=== PATIENT | female | born 2000 | race Two or more races ===

== ENCOUNTER → 2021-10-17 | Outpatient (CLI) | payer OTHER ==
[~2021-10-17] MED LIST: MUPIROCIN 2% OINT 22 GM TUBE ONE
== END ==
LOC: WCC 10:51
PROVIDERS: ATTEND Family Medicine Adult Medicine
DX: S31.502A Unspecified open wound of unspecified external genital organs, female, initial encounter (principal); E08.628 Diabetes mellitus due to underlying condition with other skin complications; L97.111 Non-pressure chronic ulcer of right thigh limited to breakdown of skin; K65.1 Peritoneal abscess; L73.2 Hidradenitis suppurativa
CPT/HCPCS: 87071; 87075; 87081; 87186; 87205

== ENCOUNTER → 2021-10-23 | Outpatient (CLI) | payer OTHER ==
[~2021-10-23] MED LIST changes: +GENTAMICIN SULFATE 15 GM CR TP ONE; -MUPIROCIN 2% OINT 22 GM TUBE ONE
== END ==
LOC: WCC 11:26
PROVIDERS: ATTEND Family Medicine Adult Medicine
DX: L03.115 Cellulitis of right lower limb (principal); E08.628 Diabetes mellitus due to underlying condition with other skin complications; L97.111 Non-pressure chronic ulcer of right thigh limited to breakdown of skin; S31.502A Unspecified open wound of unspecified external genital organs, female, initial encounter; K65.1 Peritoneal abscess; B95.7 Other staphylococcus as the cause of diseases classified elsewhere; B96.89 Other specified bacterial agents as the cause of diseases classified elsewhere
CPT/HCPCS: 87071; 87075; 87081; 87205